=== PATIENT | male | born 1995 | race Asian ===

== ENCOUNTER 2018-07-17 07:23 | Day surgery (SDC) | payer OTHER ==
[2018-07-17] VITALS (14 sets, daily range): BP systolic 103–130; BP diastolic 57–77; PULSE 60–86; RESP 16–29; Ht 177.8 cm; Wt 85.2 kg
[~2018-07-17] VITALS: Ht 177.8 cm; Wt 85.2 kg
[~2018-07-17 07:23] MED LIST: SEVOFLURANE 15 MIN ONE
[2018-07-17] MEDS ORDERED: SOD CHLORIDE 0.9% 1,000 ML IV ONE (07:30)
[2018-07-17] MEDS ORDERED: CEFAZOLIN 2 GM/50 ML (PMX) 50 ML IVPB ONE (07:30)
--- NOTE | 2018-07-17 10:06 | HPN ---
Date/Time of Note Date/Time of Note DATE: 07/17/18 TIME: 10:05 Interval H&P Admission Note Pt. seen H&P reviewed: No system changes BHARATI YOUSIF Jul 17, 2018 10:06
[2018-07-17] MEDS ORDERED: BUPIVACAINE 0.5%/EPI (SDV) 30 ML INJ ONE (10:08)
--- NOTE | 2018-07-17 10:09 | PREAC ---
Date/Time of Note Date/Time of Note DATE: 07/17/18 TIME: 10:07 Anesthesia Eval and Record Evaluation Time Pre-Procedure Interview DATE: 07/17/18 TIME: 10:07 Age 22 Sex male NPO: 8 hrs Preoperative diagnosis Perirectal Abscess/Fistula Planned procedure Exam under anesthesia and seton placement and fistulectomy Past Medical History Past Medical History: Includes Pulm: Smoking Hx Surgery & Anesthesia Issues No known issue Meds Anticoagulation: No Beta Nancy within 24 hr: No Reason Beta Nancy not given: Pt. not on B-Nancy No Active Prescriptions or Reported Meds Current Medications Sodium Chloride 1,000 ml @ 75 mls/hr [id number] ONCE IV Last administered on 07/17/18at 08:21; Admin Dose 75 MLS/HR; Start 07/17/18 at 07:30; Stop 07/17/18 at 20:49 Meds reviewed: Yes Allergies Coded Allergies: No Known Drug Allergies (Unverified Allergy, Unknown, 07/17/18) Allergies Reviewed: Yes Labs/Studies Labs Reviewed: Reviewed by anesthesiologist Result Diagram: 07/17/18 0807 07/17/18 0807 Laboratory Tests 07/17/18 08:07 test: N/A Studies: ECG (n/a), CXR (n/a) Pre-procedure Exam Last vitals Vital Signs Date Temp Pulse Resp B/P (MAP) Pulse Ox O2 O2 Flow FiO2 Time Delivery Rate 07/17/18 97.9 70 16 119/71 99 Room Air 08:18 (87) Airway: Adequate mouth opening, Adequate thyromental dist Mallampati: Mallampati II Teeth: Normal Lung: Normal Heart: Normal ASA Physical Status ASA physical status: 2 Emergency: None Planned Anesthetic General/MAC: ETT Planned Pain Management Parenteral pain med Pre-operative Attestations Prior to commencing anesthesia and surgery, the patient was re-evaluated, there was verification of: *The patient's identity *The results of appropriate recent lab work and preoperative vital signs *The above evaluation not changing prior to induction *Anesthetic plan, risk benefits, alternative and complications discussed with patient/family; questions answered; patient/family understands, accepts and wishes to proceed. NIXON DOBSON MD Jul 17, 2018 10:09
[2018-07-17] MEDS ORDERED: ROCURONIUM 50 MG INJ ONE (10:11)
[2018-07-17] MEDS ORDERED: PROPOFOL 20 ML ONE (10:11)
[2018-07-17] MEDS ORDERED: CEFAZOLIN 1 GM INJ ONE (10:11)
[2018-07-17] MEDS ORDERED: MIDAZOLAM 1 MG/ML 2 ML INJ ONE (10:12)
[2018-07-17] MEDS ORDERED: FENTAnyl 50 MCG/ML VIAL ONE (10:12)
[2018-07-17] MEDS ORDERED: ONDANSETRON 4 MG INJ ONE (10:27)
[2018-07-17] MEDS ORDERED: METOCLOPRAMIDE 10 MG INJ ONE (10:27)
[2018-07-17] MEDS ORDERED: KETOROLAC 30 MG INJ ONE (10:27)
[2018-07-17] MEDS ORDERED: DEXAMETHASONE 4 MG/ML 5 ML INJ ONE (10:27)
[2018-07-17] MEDS ORDERED: OXYCODONE/ACETAMINOPHEN (5/325) TAB PO PRN ×2 (10:30)
[2018-07-17] MEDS ORDERED: HYDROmorphONE 1 MG/5 ML IV SYRINGE IV PRN ×3 (10:30)
[2018-07-17] MEDS ORDERED: METOCLOPRAMIDE 10 MG INJ IV PRN (10:30)
[2018-07-17] MEDS ORDERED: ALBUTEROL 0.083% (NEB) 2.5 MG/3 ML AMP HHN PRN (10:30)
[2018-07-17] MEDS ORDERED: ONDANSETRON 4 MG INJ IV PRN (10:30)
[2018-07-17] MEDS ORDERED: LABETALOL HCL 20MG INJ IV PRN (10:30)
[2018-07-17] MEDS ORDERED: DIPHENHYDRAMINE 50 MG INJ IV PRN (10:30)
[2018-07-17] MEDS ORDERED: EPHEDrine SULFATE 50 MG/5 ML SYG IV PRN (10:30)
[2018-07-17] MEDS ORDERED: FENTAnyl 50 MCG/ML VIAL IV PRN ×3 (10:30)
[2018-07-17] MEDS ORDERED: MEPERIDINE 25 MG INJ IV PRN (10:30)
[2018-07-17] MEDS ORDERED: METHYLENE BLUE 1% 10 ML INJ ONE (10:41)
[2018-07-17] MEDS ORDERED: GLYCOPYRROLATE 0.4 MG INJ ONE (11:04)
[2018-07-17] MEDS ORDERED: NEOSTIGMINE 3 MG/3 ML SYRINGE ONE (11:04)
--- NOTE | 2018-07-17 11:15 | PAC ---
Date/Time of Note Date/Time of Note DATE: 07/17/18 TIME: 11:15 Post-Anesthesia Notes Post-Anesthesia Note Last documented vital signs Vital Signs Date Temp Pulse Resp B/P (MAP) Pulse Ox O2 O2 Flow FiO2 Time Delivery Rate 07/17/18 98.4 70 16 119/71 99 Room Air 11:18 (87) Activity: WNL Respiratory function: WNL Cardiovascular function: WNL Mental status: Baseline Pain reasonably controlled: Yes Hydration appropriate: Yes Nausea/Vomiting absent: Yes NIXON DOBSON MD Jul 17, 2018 11:15
--- NOTE | 2018-07-17 12:10 | OPR ---
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 Postoperative Diagnosis Same Operation/Procedure Performed Anoscopy exam under anesthesia with instillation of methylene blue Anal Fistulectomy Surgeon Bharati Yousif MD FACS Tie Layer none Anesthesia Type: general Estimated Blood Loss: minimal Transfusion none Specimen Fistula in ano excision Grafts/Implants none Tubes/Drains None Complications none Pt Condition Post Procedure: stable Disposition: PACU Indications This gentleman had duncan-anal abscess that was drained previously but led to persistent excretion of purulent material from a small opening at the anoderm about 3 cm lateral to the anal verge. There was concern for possible fistula in ano and therefore he is being taken for an exam under anesthesia and fistulec frank. Procedure Description Patient was laid in a prone jackknife position. Timeout was conducted. Antibi otics were given. The endoscope was inserted and the anus was circumferentially inspected and no irregularities were noted. At the right anoderm at 5:00 about 4 cm lateral to the anal verge a area of chronic inflammation was noted with some mild induration and fluctuance in the area. This measured about 3 cm. It was squeezed and a small opening was noted in the anoderm. 4 mL of methylene blue was slowly injected into this sinus tract and the anus was examined with the aid of endoscope and no communication with the lumen of the anus or rectum was noted. This was repeated multiple times and once it was confirmed that there was no persistent fistulous tract to go after the methylene blue Angiocath was removed and replaced with a lacrimal duct probe. It was noted that the duct probe did not go deep and did not enter the anus. At the area overlying the sinus tract that the lacrimal probe was inserted and 5 mL of quarter percent Marcaine with epinephrine was infiltrated into the dermis and thereafter a 3 cm incision was made along the sinus tract through the dermis until of fistulous tract and cavity was encountered. The cavity was excised and full taking the capsule with it and the area of necrotic tissue that continued to have protrusion of purulent material was also excised down to healthy tissue. Some sphincter muscle fibers were noted and were kept out of the way in and out of harm's way by taking out only the subcutaneous tissue and the infected skin. Afterwards the area was irrigated with Betadine solution and hemostasis was conducted with electrocautery. The lateral 1.5 cm of the wound was reapproximated by taking full-thickness bites with 3-0 chromic suture to reapproximate the wound and thereafter the small cavity that was created was packed with dry sterile gauze. The patient will be instructed to carry out packing changes twice daily and as needed and to allow the wound to heal by secondary intention and hopefully with this the infection will fully heal. BHARATI YOUSIF Jul 17, 2018 12:10
== END 2018-07-17 14:00 | disposition home or self-care (01) ==
LOC: SDS 07:23
PROVIDERS: ATTEND Surgery Surgical Critical Care
DX: K60.5 Anorectal fistula (principal)
CPT/HCPCS: 80053; 85025; 85610; 85730; 88304; J0690; J1100; J1885; J2250; J2405; J2710; J2765; J3010